=== PATIENT | male | born 1960 | race Caucasian/White ===

== ENCOUNTER 2018-02-16 13:45 | Inpatient (IN) | payer OTHER, MEDICAID ==
[~2018-02-16] VITALS: Ht 154.9 cm; Wt 60.8 kg
[2018-02-16 13:46] VITALS: BP 159/98
--- NOTE | 2018-02-16 13:51 | NUR ---
DR GRANGER AT BEDSIDE TO EVAL
--- NOTE | 2018-02-16 13:55 | NUR ---
PT BIBA FOR C/O ASPIRATION/CHOKED WHILE EATING AN APPLE ABOUT 1.5 HRS AGO. PT COUGHED UP SEVERAL PIECES OF APPLE MATERIALS SCIENTIST PER EMS. SINCE THEN HAS BEEN COUGHING UP LARGE AMOUNT OF WHITE SPUTUM. O2 SATS WNL ON RA. PT IS DEVELOPMENTALLY DELAYED, CARETAKERS AT BEDSIDE STATE HE IS AT HIS BASELINE FOR BEHAVIOR AND MENTATION. PT PLACED ON ALL MONITORS, VSS.
--- NOTE | 2018-02-16 13:56 | NUR ---
PT SUCTIONED WITH YONKER FOR CONTINUOUSLY COUGHING UP LARGE AMOUNT OF WHITE SPUTUM
--- NOTE | 2018-02-16 14:30 | NUR ---
DR GRANGER AT BEDSIDE TO [facility]. PT CONDITION UNCHANGED FROM PREVIOUS. CONTINUES TO HAVE PRODUCTIVE COUGH WITH WHITE SPUTUM
--- NOTE | 2018-02-16 15:04 | NUR ---
PT HAVING DECREASED PRODUCTIVE COUGH FREQUENCY. RESTING IN BED WITH EVEN UNLABORED RESPIRATIONS. PENDING REEVAL.
--- NOTE | 2018-02-16 15:34 | NUR ---
DR GRANGER AT BEDSIDE SPEAKING WITH BAR TURNER
[2018-02-16] MEDS ORDERED: BENZOCAINE 20% 57 GM CAN MC ONE (15:35)
[2018-02-16] MEDS ORDERED: KETAMINE 500 MG/5 ML VIAL IVP ONE (15:35)
--- NOTE | 2018-02-16 16:20 | NUR ---
CONSENT SIGNED FOR CONCIOUS SEDATION TO LOOK FOR FORIEGN BODY IN AIRWAY.
--- NOTE | 2018-02-16 16:28 | NUR ---
DR GRANGER PERFORMED CONCIOUS SEDATION PROCEDURE TO LOOK FOR FOREIGN BODY IN AIRWAY, PT TOLERATED WELL. RT, EMT, AND MYSELF ALL AT BEDSIDE FOR PROCEDURE. PLEASE SEE CONCIOUS SEDATION PAPER WORK FOR MORE INFO.
[2018-02-16] MEDS ORDERED: LAM200 PO (16:41)
[2018-02-16] MEDS ORDERED: METF850T PO (16:41)
[2018-02-16] MEDS ORDERED: CLON0.5T PO (16:41)
[2018-02-16] MEDS ORDERED: RANI150T15 PO (16:41)
[2018-02-16] MEDS ORDERED: BENA20TA PO (16:41)
[2018-02-16] MEDS ORDERED: CLON1TAB PO (16:41)
[2018-02-16] MEDS ORDERED: FERR-252 PO (16:41)
[2018-02-16] MEDS ORDERED: INSU100I3 SQ (16:41)
[2018-02-16] MEDS ORDERED: VITB6I PO (16:41)
[2018-02-16] MEDS ORDERED: [UNRECOGNIZED DRUG - CODE] MC (16:41)
[2018-02-16] MEDS ORDERED: VITD1000 PO (16:41)
[2018-02-16] MEDS ORDERED: VITA-415 PO (16:41)
[2018-02-16] MEDS ORDERED: ACT30 PO (16:41)
[2018-02-16] MEDS ORDERED: VITB1I PO (16:41)
[2018-02-16] MEDS ORDERED: CYAN250013 PO (16:41)
[2018-02-16] MEDS ORDERED: KEP500 PO (16:41)
[2018-02-16] MEDS ORDERED: ATOR10TA51 PO (16:41)
[2018-02-16] MEDS ORDERED: NACL 0.9% 1,000 ML IV SCH (17:08)
[2018-02-16] MEDS ORDERED: MORPHINE SULFATE 2 MG/ML SYR IVP PRN (17:10)
--- NOTE | 2018-02-16 17:16 | NUR ---
PT IS RESTING IN BED, RELAXED AND CALM, EVEN AND UNLABORED RESPIRATIONS. AROUSABLE TO VOICE. REMAINS ON ALL MONITORS, VS WNL. POA/HOMOGENIZER OPERATOR AT BEDSIDE UPDATED ON POC. PENDING ADMIT ORDERS.
--- NOTE | 2018-02-16 17:58 | NUR ---
Patient will be admitted to care of [facility]. Admited to TELE. Will go to [id number]. Belongings list completed. Report to UMESH ECHEVERRIA.
--- NOTE | 2018-02-16 18:00 | NUR ---
PT ADMITTED TO TELE. BEDSIDE REPORT GIVEN BY ER NURSE PAUL. PT AMBULATED TO BED FROM [facility] ASSISTED BY SISTER. WALKED WITH STEADY GAIT. PT IS APHASIC. ABLE TO FOLLOW COMMANDS. MRSA SWAB DONE. TELE MONITOR APPLIED. PT NPO. VS: TEMP 97.9. HR 100, BP 141/87, RR 22, O2 SAT 93% ON RA. PT WITH COUGH. IV TO R WRIST 22G INTACT. SISTER AT BEDSIDE. YELLOW SOCKS ON. CALL LIGHT WITHIN REACH. WILL CONTINUE TO MONITOR.
[2018-02-16 18:05] LABS: BASOPHILS % (AUTO) 0.1 % (0.0-2.0); EOSINOPHILS % (AUTO) 0.2 % (0.0-4.0); HEMATOCRIT 41.4 % (36-52); HEMOGLOBIN 14.1 g/dL (12.0-18.0); LYMPHOCYTES # (AUTO) 0.5 K/uL (2.0-11.5); LYMPHOCYTES % (AUTO) 6.6 % (20.5-51.1); MEAN CORPUSCULAR HEMOGLOBIN 30 pg (27-31); MEAN CORPUSCULAR HGB CONC 34 g/dL (33-37); MEAN CORPUSCULAR VOLUME 87.3 fL (80-94); MONOCYTES # (AUTO) 0.3 K/uL (0.8-1.0); MONOCYTES % (AUTO) 3.9 % (1.7-9.3); NEUTROPHILS # (AUTO) 6.5 K/uL (1.8-7.7); NEUTROPHILS % (AUTO) 89.2 % (42.2-75.2); PLATELET COUNT (AUTO) 169 K/uL (140-450); RED BLOOD CELL COUNT(AUTO) 4.74 MIL/uL (4.20-6.10); RED CELL DISTRIBUTION WIDTH 13.3 % (11.6-13.7); WHITE BLOOD COUNT (AUTO) 7.3 K/uL (4.8-10.8)
[2018-02-16] MEDS ORDERED: ALBUTEROL SULFATE/IPRATROPIU 3 ML SOL IH PRN ×4 (18:20→21:00)
[2018-02-16 18:36] LABS: ANION GAP 14.2 (8-16); CARBON DIOXIDE 26.4 mmol/L (21-32); CREATININE 0.4 mg/dL (0.7-1.3); POTASSIUM 3.6 mmol/L (3.5-5.1); TOTAL BILIRUBIN 0.4 mg/dL (0.0-1.0)
[2018-02-16 18:37] LABS: PROTHROMBIN TIME 11.4 secs (10.8-13.4)
[2018-02-16 18:39] LABS: CHOL/HDL RATIO 1.5 (1-4.5); FREE T4 (FREE THYROXINE) 1.16 ng/dL (0.76-1.46); MAGNESIUM 1.2 mg/dL (1.8-2.4); PHOSPHORUS 3.5 mg/dL (2.5-4.9); THYROID STIMULATING HORMONE 0.28 uIU/mL (0.34-3.74)
[2018-02-16] MEDS ORDERED: methylPREDNISolone SS 125 MG/2 ML VIAL IVP SCH (18:45)
[2018-02-16] MEDS ORDERED: DEXT 5% / NACL 0.9% 500 ML IV SCH (18:50)
[2018-02-16] MEDS ORDERED: ALBUTEROL SULFATE/IPRATROPIU 3 ML SOL IH SCH (19:00)
--- NOTE | 2018-02-16 19:20 | NUR ---
ENDORSED PT TO REAL ESTATE INTERNSHIP NURSE ELFEGO AT BEDSIDE FOR CONTINUITY OF CARE. PT IN STABLE CONDITION.
--- NOTE | 2018-02-16 19:21 | NUR ---
REPORT RECEIVED FROM AM SHIFT AT BEDSIDE. PT IN STABLE CONDITION. AAOX1. BOARD UPDATED AND INTRODUCED SELF TO PT AND CALL CENTER ANALYST. IV SITE PATENT AND INTACT. SKIN WARM, DRY, AND INTACT WITH NO OPEN WOUNDS. BED LOCKED IN LOW POSITION. CALL JIMÉNEZ WITHIN REACH. WILL CONTINUE TO MONITOR.
[2018-02-16] MEDS ORDERED: DEXTROSE 50% 50 ML SYR IVP PRN (19:55)
--- NOTE | 2018-02-16 19:55 | NUR ---
US OF ART AND VENOUS BILATERAL LOWER EXTREMITIES DONE.
[2018-02-16 20:00] VITALS: BP 136/83
[2018-02-16] MEDS ORDERED: MAG SULF 2000 MG/WATER PREMIX 50 ML IV SCH (20:00)
[2018-02-16] MEDS: LEVOFLOXACIN 750 MG/D5W PREMIX 150 ML IV SCH (20:27)
--- NOTE | 2018-02-16 20:30 | NUR ---
OG BOATENG. PT TOLERATED WELL.
--- NOTE | 2018-02-16 21:15 | NUR ---
RARE/ENDANGERED SPECIES SPECIALIST AT BEDSIDE. BS 240. 4 UNITS OF INSULIN ACCORDING TO SLIDING SCALE. RARE/ENDANGERED SPECIES SPECIALIST DOES NOT WANT INSULIN COVERAGE AT THE MOMENT IN FEAR OF BOTTOMING OUT. ASK IF I COULD CHECK IN A FEW HOURS AND IF INSULIN COVERAGE IS NEEDED THEN SHE WILL AGREE FOR INSULIN AT THAT TIME.
[2018-02-16] MEDS: BLOOD GLUCOSE MONITORING 1 DEV DEV FS SCH (21:17)
[2018-02-16] MEDS: CLINDAMYCIN 600 MG in DEXTROSE 5% 50 ML IV SCH (21:30)
--- NOTE | 2018-02-16 21:30 | NUR ---
CLINDAMYCIN TASNEEM. PT TOLERATED WELL.
--- NOTE | 2018-02-16 22:10 | NUR ---
MAG RIDER HUNG. MAG RIDER 2GM/50ML NOT AVAILABLE. RECEIVED 1G/100ML BAG X2 FROM DEREK ECHEVERRIA. RAN EACH BAG AT 50ML/HR DUE TO A LOWER CONCENTRATION. ORIGINAL RATE 25ML/HR. PT TOLERATED WELL.
--- NOTE | 2018-02-16 23:22 | NUR ---
PT OFF UNIT FOR CT NECK WITHOUT CONTRAST.
--- NOTE | 2018-02-16 23:40 | NUR ---
PT BACK FROM CT. NO S/S OF DISTRESS.
[2018-02-17] VITALS: BP 123/89
--- NOTE | 2018-02-17 01:45 | NUR ---
PT SLEEPING COMFORTABLY. CHEST EXPANSION NOTED.
--- NOTE | 2018-02-17 03:30 | NUR ---
PT AWAKE AND ALERT SITTING UP IN BED PLAYING WITH HIS STRING.
[2018-02-17 04:00] VITALS: BP 120/74
--- NOTE | 2018-02-17 05:00 | NUR ---
ATTEMPTED TO GET URINE SAMPLE. PUT HAT ON TOILET TO CATCH URINE. PT MISSED THE HAT COMPLETE.
[2018-02-17] MEDS: CLINDAMYCIN 600 MG in DEXTROSE 5% 50 ML IV SCH (05:21)
[2018-02-17] MEDS: BLOOD GLUCOSE MONITORING 1 DEV DEV FS SCH ×4 (05:26→20:23)
[2018-02-17] MEDS ORDERED: LORazepam 2 MG/ML VIAL IM/IVP PRN (06:05)
--- NOTE | 2018-02-17 07:10 | NUR ---
REPORT GIVEN TO AM NURSE. PT IN STABLE CONDITION.
--- NOTE | 2018-02-17 07:15 | NUR ---
RECEIVED PT FROM BRAND MGR NURSEELFEGO, PT IS AWAKE AND LYING ON THE BED WITH CAREGIVER ON THE BEDSIDE, SIDE RAILS ARE UP AND BED IN LOW POSITION, CALL LIGHT WITHIN REACH. PT HAS AN IV LINE ON THE RT WRIST G. 22, WITH D5 NS RUNNING AT 75ML/HR. RESPIRATIONS EVEN AND NO SIGN OF DISTRESS NOTED. WILL CONTINUE TO MONITOR.
[2018-02-17 07:32] LABS: BASOPHILS % (AUTO) 0.2 % (0.0-2.0); EOSINOPHILS % (AUTO) 0.1 % (0.0-4.0); HEMATOCRIT 46.9 % (36-52); HEMOGLOBIN 16.3 g/dL (12.0-18.0); LYMPHOCYTES # (AUTO) 0.6 K/uL (2.0-11.5); LYMPHOCYTES % (AUTO) 7.1 % (20.5-51.1); MEAN CORPUSCULAR HEMOGLOBIN 31 pg (27-31); MEAN CORPUSCULAR HGB CONC 35 g/dL (33-37); MEAN CORPUSCULAR VOLUME 87.6 fL (80-94); MONOCYTES # (AUTO) 0.3 K/uL (0.8-1.0); NEUTROPHILS # (AUTO) 7.2 K/uL (1.8-7.7); NEUTROPHILS % (AUTO) 88.6 % (42.2-75.2); PLATELET COUNT (AUTO) 186 K/uL (140-450); RED BLOOD CELL COUNT(AUTO) 5.36 MIL/uL (4.20-6.10); RED CELL DISTRIBUTION WIDTH 13.8 % (11.6-13.7); WHITE BLOOD COUNT (AUTO) 8.1 K/uL (4.8-10.8)
--- NOTE | 2018-02-17 07:35 | NUR ---
PT IS AWAKE AND SEATED ON THE BED, PT PULLED OUT HIS IV LINE ACCORDING TO THE CAREGIVER. VITAL SIGNS TAKEN AND IS STABLE. RT CAME AND CHECKED ON THE O2 SATURATION AND RESPIRATION OF THE PT. NO SIGN OF DISTRESS NOTED AND WILL CONTINUE TO MONITOR.
[2018-02-17 08:00] VITALS: BP 136/77
[2018-02-17 08:33] LABS: T4 (THYROXINE) 7.9 ug/dL (4.5-12.0)
--- NOTE | 2018-02-17 08:51 | NUR ---
PATIENT HAS BEEN SCREENED AND CATEGORIZED HIGH NUTRITION RISK. PATIENT WILL BE SEEN WITHIN 1-2 DAYS OF ADMISSION. 02/17/18 02/18/[address]
[2018-02-17] MEDS ORDERED: INSULIN LANTUS 100 UNITS/ML 10 ML VIAL SUBQ SCH (09:00)
--- NOTE | 2018-02-17 09:01 | NUR ---
PT IS AWAKE AND SEATED ON THE BED, NIECE ON THE BEDSIDE, BLOOD GLUCOSE [id number] AND RESULT IS 237, LANTUS GIVEN AT THE LEFT UPPER ARM AT 12UNITS, PT TOLERATED IT, NIECE REFUSED TO BE GIVEN HUMALOG SLIDING SCALE EQUIVALENT OF 4 UNITS TO THE PT. NO SIGN OF DISTRESS NOTED AND WILL MYRA.
[2018-02-17 09:11] LABS: ANION GAP 14.5 (8-16); CARBON DIOXIDE 25.8 mmol/L (21-32); CREATININE 0.6 mg/dL (0.7-1.3); POTASSIUM 4.3 mmol/L (3.5-5.1)
--- NOTE | 2018-02-17 09:40 | NUR ---
A NEW IV LINE WAS STARTED ON THE PT ON THE LEFT HAND G.22. AND HOOKED TO IV FLUID OF D5 NS AT 75ML/HR, INTACT AND INFUSING WELL. NO SIGN OF DISTRESS NOTED ON THE PT. WILL MONITOR.
--- NOTE | 2018-02-17 10:35 | NUR ---
PT HAD AN EPISODE OF SEIZURE THAT PROMPTED TO CALL RAPID RESPONSE, PT'S VITAL SIGNS WAS TAKEN AND IS STABLE. PT WAS ON O2 AT 3L. BLOOD GLUCOSE CHECK DONE AND RESULT IS 250. PT IS BEING OBSERVE AT THIS TIME.
[2018-02-17] MEDS ORDERED: clonazePAM 0.5 MG TAB PO PRN (10:40)
[2018-02-17] MEDS ORDERED: LORazepam 2 MG/ML VIAL IVP PRN (10:50)
[2018-02-17] MEDS ORDERED: DEXT 5% /NACL 0.9% 1,000 ML IV SCH (10:57)
[2018-02-17] MEDS ORDERED: INSU100I3 SQ (11:30)
--- NOTE | 2018-02-17 11:50 | NUR ---
Charge Preparation Technician Notes Late Entry for 02/17/18 at about 11:50am. I attempted to meet with Patient during the screen to discuss, confirm and gather Patients additional information. Patient refused to meet or answer any questions to these bond underwriter. Patient cover his head with his blanket ignore and did not responded to any questions.
[2018-02-17 12:00] VITALS: BP 110/55
--- NOTE | 2018-02-17 12:00 | NUR ---
BLOOD GLUCOSE CHECK DONE ON THE PT AND RESULT IS 282, FAMILY REFUSED FOR THE PT TO BE GIVEN A HUMALOG INSULIN. WILL CONTINUE TO MONITOR PT.
--- NOTE | 2018-02-17 12:25 | NUR ---
PLANTING SUPERVISOR NOTE 1215 PLANTING SUPERVISOR attempted to see pt for swallow evaluation after clearance by JACKI Frias, caregiver present at bedside. According to caregiver, pt had a seizure <2hrs ago, and is very lethargic. Pt unable to rouse for swallow evaluation, PLANTING SUPERVISOR will return in 1 hr to re-attempt. Caregiver and JACKI Frias voiced agreement.
[2018-02-17] MEDS ORDERED: levETIRAcetam 500 MG in NACL 0.9% 100 ML IV SCH (12:30)
--- NOTE | 2018-02-17 12:30 | NUR ---
Purchasing Coordinator Notes Late Entry for 02/17/18 at about 12:30 I received a call form [facility] . I spoke to Tonja who reported that Patient is getting home health services with their agency. According to Tonja they will be sending patient's information to child welfare caseworker and psychotherapist social worker and will like to be contacted back to resume their services when patient is ready and clear for discharge. A fax form [facility] with Patient information was received followed by the call from Tonja at about 12:54PM
[2018-02-17] MEDS: CLINDAMYCIN PHOS 600MG/D5W PM 50 ML IV SCH ×2 (13:21→20:31)
--- NOTE | 2018-02-17 13:25 | NUR ---
PT IS ASLEEP WITH FAMILY ON THE BEDISDE, O2 3L IN PLACE AND VITAL SIGNS MONITORING IN PLACE ALSO. VITAL SIGNS STABLE. MEDICATION GIVEN VIA IVPB, AND PT TOLERATED IT. NO SIGN OF DISTRESS NOTED ON THE PT NOW. WILL CONTINUE TO MONITOR.
--- NOTE | 2018-02-17 13:55 | NUR ---
SPOKE TO NAMITA WHO DID THE SWALLOW EVALUATION FOR THE PT, ACCORDING TO NAMITA'S RECOMMENDATION PT CAN HAVE A MECHANICAL SOFT DIET WITH THIN LIQUID BUT WITH SUPERVISION AND ASPIRATION PRECAUTION SHOULD BE ENFORCED. ACKNOWLEDGED AND WILL WAIT FOR MD TO PUT AN ORDER FOR THE PT.
[2018-02-17] MEDS: metFORMIN 850 MG TAB PO SCH ×2 (13:59→16:39)
--- NOTE | 2018-02-17 14:04 | NUR ---
LEARNING CONSULTANT NOTE [id number] Bedside swallow evaluation completed following clearance by JACKI Frias, please refer to LEARNING CONSULTANT evaluation for full report. Recommend: -Mech soft texture + thin liquids for all PO intake -STRICT 1:1 supervision to decrease risk of choking 2/2 pt has rapid rate of intake -UPRIGHT at 90 during and 20 min after intake -SMALL bites/sips, SLOW rate, ALTERNATE bites/sips -Feeding assistance as needed if rapid rate of intake persists -LEARNING CONSULTANT to follow 1x/wk x1wk for diet safety and tolerance PVE w/RN, caregivers, and Dr. Terry re: results and recommendations. LEARNING CONSULTANT continued to stress the importance of choking safety after caregivers stated pt like to feed self and doesn't like being watched, given the fact pt choked on an apple. Caregivers voiced understanding. G8996: CJ G8998: CI Swallow NOMS 3
--- NOTE | 2018-02-17 14:35 | NUR ---
DR. VELASCO CAME TO THE PT'S ROOM AND SPOKE TO FAMILY, RN, MERLYN IS COVERING FOR RAMA ECHEVERRIA WHILE SHE TAKES HER LUNCH BREAK.
--- NOTE | 2018-02-17 14:45 | NUR ---
DR. VELASCO CAME IN AND SPOKE TO FAMILY. SUGGESTED A SLIDING SCALE FOR GLUCOSE LEVEL. FAMILY IS UNCOMFORTABLE WITH GIVING A FULL DOSE BUT 1/2 DOSE. AFRAID THAT BS WILL DROP TOO QUICKLY. WILL GO AHEAD AND GIVE 1/2 SUGGESTED AND WILL CHECK IN AN HOUR TO SEE IF IT DROPPED SIGNIFICANTLY. FAMILY VERBALIZED UNDERSTANDING AND AGREED THAT THEY WILL AGREE TO 1/[address]'S ORDERS FOR LAMICTAL ONE TIME NOW AND SCHEDULED BID.
--- NOTE | 2018-02-17 14:52 | NUR ---
02/17/18 RD INITIAL ASSESSMENT COMPLETED PLEASE REFER TO NUTRITION ASSESSMENT UNDER CARE ACTIVITY FOR ESTIMATED NUTRITIONAL NEEDS. 1. WHEN/IF PT MEDICALLY STABLE TO BEGIN NUTRITION, CONSIDER ADVANCE DIET TOLERATED TO MECHANICAL SOFT CCHO 60GM, CARDIAC TOLERATED 2. PROVIDED NUTRITION EDUCATION ON DIABETES MANAGMENT 3. RD TO FOLLOW-UP 3-5 DAYS, MODERATE RISK AZAEL KELLER RD
[2018-02-17] MEDS: INSULIN LISPRO SLIDING SCALE 100 UNITS/ML VIAL SUBQ PRN ×3 (15:09→21:11)
--- NOTE | 2018-02-17 15:11 | NUR ---
ADMINISTERED 3 UNITS OF INSULIN AND LAMICTAL. PT TOLERATED WELL. FAMILY AT BEDSIDE. WILL CONTINUE TO MONITOR PT.
--- NOTE | 2018-02-17 15:13 | NUR ---
PER JACKI ZULETA'S ENDORSEMENT, PT'S BLOOD GLUCOSE CHECKING WILL BE EVERY 4H STARTING AT 1600 TODAY.ACKNOWLEDGED.
[2018-02-17 16:00] VITALS: BP 116/67
--- NOTE | 2018-02-17 16:30 | NUR ---
PT IS AWAKE AND SEATED ON THE BED, BLOOD GLUCOSE CHECK DONE AND RESULT IS 218. INSULIN COVERAGE IS NEEDED.
--- NOTE | 2018-02-17 16:45 | NUR ---
PT IS AWAKE AND SEATED ON A SEMI_FOWLER'S POSITION ON THE BED, DR. CHRISTIAN CAME AND SPOKE TO THE FAMILY. MEDICATIONS GIVEN AND PT TOLERATED IT WELL. NO SIGN OF DISTRESS NOTED AND WILL CONTINUE TO MONITOR.
--- NOTE | 2018-02-17 18:15 | NUR ---
PT IS BEING OBSERVED WHILE EATING, PT TOLERATED HIS FULL LIQUID DIET WELL AND WAS ADVISED TO SWALLOW AND DRINK SLOWLY TO PREVENT CHOKING AND ASPIRATION. PT OBEYS COMMAND. NO SIGN OF DISTRESS NOTED. WILL ENDORSED TO TIPPLE TENDER NURSE FOR FURTHER EVALUATION.
--- NOTE | 2018-02-17 19:15 | NUR ---
ENDORSED PT TONIGHT SHIFT NURSE, MO FOR CONTINUITY OF CARE, PT IS STABLE AT THIS TIME WITH CAREGIVER ON THE BEDSIDE.
--- NOTE | 2018-02-17 19:20 | NUR ---
RECEIVED PT IN STABLE CONDITION FROM AM NURSE. AWAKE, ALERT BUT MENTALLY DELAY. ON TELE MONITOR. BED REST WITH FAMILY AT BEDSIDE. ON ROOM AIR O2 SAT97%. NO SOB NOR ANY DISTRESS NOTED. WITH IVF INFUSING WELL ON THE LT FA#22. CLEAR AND PATENT. PT PLAYING WITH SOME OWN TOYS. ON THE TABLE. SIDE RAILS ARE PADDED FOR SEIZURE PRECAUTIONS. BED ON LOW POSITION. FREQUENT ROUNDS NEEDED. WILL CONTINUE TO MONITOR FOR ANY SEIZURE ACTIVITY.
[2018-02-17 20:00] VITALS: BP 115/68
[2018-02-17] MEDS: NACL 0.9% 1,000 ML IV SCH (20:24)
[2018-02-17] MEDS: LEVOFLOXACIN 750 MG/D5W PREMIX 150 ML IV SCH (20:25)
[2018-02-17] MEDS: levETIRAcetam 500 MG TAB PO SCH (20:31)
[2018-02-17] MEDS: clonazePAM 0.5 MG TAB PO SCH (20:32)
[2018-02-17] MEDS: FAMOTIDINE 20 MG TAB PO SCH (20:33)
[2018-02-17] MEDS ORDERED: BENAZEPRIL 10 MG TAB PO SCH (21:00)
[2018-02-17] MEDS ORDERED: NON-FORMULARY ITEM (Ranitidine HCl (Zantac) 150 MG) PO SCH (21:00)
--- NOTE | 2018-02-17 21:11 | NUR ---
BLOOD SUGAR WAS CHECKED RESULT 199. INSULIN COVERAGE GIVEN ORDERED. PROVIDED WITH SOME SNACK. TOLERATED WELL . WILL CONTINUE TO MONITOR.
--- NOTE | 2018-02-17 23:00 | NUR ---
MADE ROUNDS. PT IS ASLEEP. CAREGIVER AT BEDSIDE. WILL CONTINUE TO MONITOR.
[2018-02-18] MEDS: BLOOD GLUCOSE MONITORING 1 DEV DEV FS SCH ×3 (00:19→08:18)
--- NOTE | 2018-02-18 00:19 | NUR ---
BLOOD SUGAR WAS CHECKED RESULT 140. NO INSULIN NEEDED.
--- NOTE | 2018-02-18 01:00 | NUR ---
MADE ROUNDS. PT ASLEEP. NO SEIZURE ACTIVITY NOTED. WILL CONITNUE TO MONITOR.
--- NOTE | 2018-02-18 03:00 | NUR ---
SLEEPING. NO S/S OF ANY DISCOMFORT NOT PAIN NOTED.
[2018-02-18] MEDS: CLINDAMYCIN PHOS 600MG/D5W PM 50 ML IV SCH (04:25)
[2018-02-18] MEDS: INSULIN LISPRO SLIDING SCALE 100 UNITS/ML VIAL SUBQ PRN (04:32)
--- NOTE | 2018-02-18 04:32 | NUR ---
BLOOD SUGAR THIS AM 219. INSULIN COVERAGE GIVEN. WILL CONTINUE TO MONITOR.
[2018-02-18 07:21] LABS: BASOPHILS % (AUTO) 0.1 % (0.0-2.0); EOSINOPHILS % (AUTO) 0.8 % (0.0-4.0); HEMATOCRIT 39.5 % (36-52); HEMOGLOBIN 13.7 g/dL (12.0-18.0); LYMPHOCYTES # (AUTO) 1.1 K/uL (2.0-11.5); LYMPHOCYTES % (AUTO) 18.7 % (20.5-51.1); MEAN CORPUSCULAR HEMOGLOBIN 30 pg (27-31); MEAN CORPUSCULAR HGB CONC 35 g/dL (33-37); MEAN CORPUSCULAR VOLUME 86.8 fL (80-94); MONOCYTES # (AUTO) 0.4 K/uL (0.8-1.0); MONOCYTES % (AUTO) 6.5 % (1.7-9.3); NEUTROPHILS # (AUTO) 4.2 K/uL (1.8-7.7); NEUTROPHILS % (AUTO) 73.9 % (42.2-75.2); PLATELET COUNT (AUTO) 177 K/uL (140-450); RED BLOOD CELL COUNT(AUTO) 4.55 MIL/uL (4.20-6.10); RED CELL DISTRIBUTION WIDTH 13.4 % (11.6-13.7); WHITE BLOOD COUNT (AUTO) 5.7 K/uL (4.8-10.8)
--- NOTE | 2018-02-18 07:24 | NUR ---
ENDORSED PT IN STABLE CONDITION TO AM NURSE FOR CONTINUITY OF CARE.
--- NOTE | 2018-02-18 07:30 | NUR ---
RECEIVED PT FROM WORT EXTRACTOR NURSEMO, PT IS AWAKE LYING ON A SEMI-RODRIGUEZ'S POSITION ON THE BED WITH CAREGIVER ON THE BEDSIDE. PT HAS AN IV LINE ON THE LEFT FA G. 22 INTACT AND WITH NS RUNNING AT 75ML/HR, INFUSING WELL. SIDE RAILS ARE UP AND PADDED AND SEIZURE PRECAUTION ENFORCED. CALL LIGHT WITHIN REACH AND PLAN OF CARE WAS DISCUSSED WITH THE PT WITH THE CAREGIVER ON THE BEDSIDE. NO SIGN OF DISTRESS NOTED AND WILL CONTINUE TO MONITOR.
[2018-02-18 07:44] LABS: ANION GAP 11.9 (8-16); CARBON DIOXIDE 25.9 mmol/L (21-32); CREATININE 0.7 mg/dL (0.7-1.3); POTASSIUM 3.8 mmol/L (3.5-5.1)
--- NOTE | 2018-02-18 07:45 | NUR ---
PT IS AWAKE AND BREAKFAST WAS SERVED, VITAL SIGNS TAKEN AND IS STABLE. SUPERVISION WITH THE FEEDING WAS DONE WITH THE CAREGIVER ON THE BEDSIDE. ASPIRATION PRECAUTION ENFORCED AND NO SIGN OF DISTRESS NOTED. WILL MMONITOR.
[2018-02-18 07:51] LABS: MAGNESIUM 1.6 mg/dL (1.8-2.4); PHOSPHORUS 3.3 mg/dL (2.5-4.9)
[2018-02-18 08:00] VITALS: BP 113/69
[2018-02-18] MEDS: metFORMIN 850 MG TAB PO SCH (08:19)
[2018-02-18] MEDS: FAMOTIDINE 20 MG TAB PO SCH (08:20)
--- NOTE | 2018-02-18 08:20 | NUR ---
DR. GUERRA AND THE RESIDENTS CAME TO THE PT'S ROOM AND SPOKE TO THE PT AND THE CAREGIVER ON THE BEDSIDE. DR. GUERRA TOLD THE CAREGIVER AND THE PT THAT THE PT WILL BE DISCHARGE TODAY.
[2018-02-18] MEDS: levETIRAcetam 500 MG TAB PO SCH (08:21)
[2018-02-18] MEDS: clonazePAM 0.5 MG TAB PO SCH (08:23)
--- NOTE | 2018-02-18 08:31 | NUR ---
PT IS AWAKE AND HAVING HIS BREAKFAST, MEDICATIONS GIVEN AND PT TOLERATED IT WELL. NO SIGN OF ASPIRATION OR ANY DISTRESS NOTED ON THE PT. WILL MONITOR.
--- NOTE | 2018-02-18 08:49 | NUR ---
SPOKE TO DR. ALVAREZ IF THE PT'S EGD WILL BE CANCEL AND ASKED IF DR. CHRISTIAN IS INFORMED ABOUT THE CANCELLATION OF THE EGD OF THE PT TODAY AND DR. ALVAREZ SAID THAT HE WILL INFORM DR. CHRISTIAN OF THE CANCELLATION OF THE PROCEDURE TODAY.
[2018-02-18] MEDS ORDERED: ATORVASTATIN 20 MG TAB PO SCH (09:00)
[2018-02-18] MEDS ORDERED: COMMUNICATION ORDER MC SCH (09:00)
[2018-02-18] MEDS ORDERED: SENNA 8.6 MG TAB PO SCH (09:00)
[2018-02-18] MEDS ORDERED: [UNRECOGNIZED DRUG - OTHER] SUBQ SCH (09:00)
[2018-02-18] MEDS ORDERED: LACTULOSE 20 GM/30 ML UDC PO SCH (09:00)
--- NOTE | 2018-02-18 09:02 | NUR ---
INFORMED DR. ALVAREZ OF THE PT'S MAGNESIUM LEVEL OF 1.[address] ALVAREZ ACKNOWLEDGED AND SAID THAT HE WILL PUT AN ORDER.
[2018-02-18] MEDS: NACL 0.9% 1,000 ML IV SCH (09:20)
--- NOTE | 2018-02-18 09:46 | NUR ---
ACKNOWLEDGED A DISCHARGE ORDER PLACED BY DR. ALVAREZ FOR THE PT. WILL FACILITATE DISCHARGE PROCESS.
[2018-02-18] MEDS ORDERED: MAGNESIUM OXIDE 400 MG TAB PO SCH (10:00)
--- NOTE | 2018-02-18 10:18 | NUR ---
DR. VELASCO CAME TO THE PT'S ROOM AND TALKED TO THE CAREGIVERS PRESENT ON THE BEDSIDE REGARDING THE PT'S DISCHARGE MEDICATION INSTRUCTIONS AND ANSWERED ALL THE CAREGIVERS QUESTIONS RELATED TO THE PT'S MEDICATIONS. CAREGIVERS VERBALIZED UNDERSTANDING.
--- NOTE | 2018-02-18 11:20 | NUR ---
DISCHARGED PT VIA WHEELCHAIR WITH THE CAREGIVERS, DISCHARGED INSTRUCTIONS GIVEN AND FORMS FOR REQUEST OF MEDICAL RECORDS INFORMATION GIVEN TO MAXIM CAREGIVER. IV LINE AND ARM BANDS REMOVED. PT IS STABLE AT THIS TIME.
--- NOTE | 2018-02-18 11:52 | NUR ---
CAREGIVER CAME BACK TO ENVIRONMENTAL ASSISTANT THE TRESIBA AND HANDED IT TO HER.
--- NOTE | 2018-02-18 14:29 | NUR ---
PRE PLANNING ADVISOR NOTE 1430 Pt d/c to B/C on mechanical soft texture and thin liquids. Recommend continue strict aspiration precautions to reduce risk of choking. Addendum: 02/18/18 at [address] G8996: TERRELL G8997: CI G8998: CI Swallow NOMS 4
== END 2018-02-18 11:20 | DRG 394 ==
LOC: MED 13:45 → MTU 17:15
PROVIDERS: ADMIT General Practice; ATTEND General Practice
PROC: 0WJ34ZZ Inspection of Oral Cavity and Throat, Percutaneous Endoscopic Approach (ICD-10-PCS; principal; 2018-02-16)
DX: T18.128A Food in esophagus causing other injury, initial encounter (principal); J05.10 Acute epiglottitis without obstruction; E87.1 Hypo-osmolality and hyponatremia; J98.11 Atelectasis; E83.42 Hypomagnesemia; G40.909 Epilepsy, unspecified, not intractable, without status epilepticus; I10 Essential (primary) hypertension; E78.5 Hyperlipidemia, unspecified; M47.9 Spondylosis, unspecified; F79 Unspecified intellectual disabilities; K21.9 Gastro-esophageal reflux disease without esophagitis; E87.8 Other disorders of electrolyte and fluid balance, not elsewhere classified; E11.65 Type 2 diabetes mellitus with hyperglycemia; E11.40 Type 2 diabetes mellitus with diabetic neuropathy, unspecified; X58.XXXA Exposure to other specified factors, initial encounter; K22.70 Barrett's esophagus without dysplasia; Z86.718 Personal history of other venous thrombosis and embolism; Z88.0 Allergy status to penicillin; Z88.2 Allergy status to sulfonamides; Z79.899 Other long term (current) drug therapy; Z79.84 Long term (current) use of oral hypoglycemic drugs; Y93.89 Activity, other specified; Y92.89 Other specified places as the place of occurrence of the external cause; Y99.8 Other external cause status
CPT/HCPCS: 36415; 70360; 70490; 71045; 71250; 80048; 80053; 82150; 82948; 83036; 83690; 83735; 83880; 84100; 84436; 84439; 84443; 84479; 84484; 85025; 85610; 85730; 87081; 92610; 93005; 93925; 93970; 94640; 97799; 99285; J1815; J1953; J1956; J2060; J2930; J3490; J7030; J7042; J7060; J7620; Q0092

== ENCOUNTER 2019-03-24 10:46 | Emergency (ER) | payer MEDICAID, OTHER ==
[~2019-03-24] VITALS: Ht 167.6 cm; Wt 81.6 kg
[2019-03-24 10:46] VITALS: BP 133/80
[~2019-03-24 10:46] MED LIST: ATOR10TA51 PO; BENA20TA PO; CLON0.5T PO; CLON1TAB PO; CYAN250013 PO; FERR-252 PO; INSU100I3 SQ; KEP500 PO; LAM200 PO; METF850T PO; RANI-745 PO; VITA-415 PO; VITB1I PO; VITB6I PO; VITD1000 PO; [UNRECOGNIZED DRUG - CODE] MC
--- NOTE | 2019-03-24 10:49 | NUR ---
PT BIB [facility] TO ER BED 9
--- NOTE | 2019-03-24 10:50 | NUR ---
Pt biba for further evaluation of possible pulmonary aspiration after choking with slices of apple. Per EMS pt was actively vomiting when they arrived at scene; Pt had another vomiting episode in route. VSS. RR even and unlabored; O2 sat 95% on RA. Pt is non-verbal; baseline per caregiver. med hx: DM II, seizure, aphasia allergies: Sulfa, Penicillins
--- NOTE | 2019-03-24 11:00 | NUR ---
Patient resting comfortably in bed. Vital Signs within normal limits. Respirations even and unlabored. Caregiver at bedside.
[2019-03-24] MEDS ORDERED: ACT30 PO (11:17)
[2019-03-24 12:16] VITALS: BP 112/69
--- NOTE | 2019-03-24 12:17 | NUR ---
Patient discharged with v/s stable. Written and verbal after care instructions given and explained. caregiver verbalized understanding. Ambulatory with steady gait. All questions addressed prior to discharge. Advised to follow up with PMD.
== END 2019-03-24 12:17 | disposition home or self-care (01) ==
LOC: MED 10:46
DX: T17.928A Food in respiratory tract, part unspecified causing other injury, initial encounter (principal); E11.9 Type 2 diabetes mellitus without complications; K21.9 Gastro-esophageal reflux disease without esophagitis; Z86.69 Personal history of other diseases of the nervous system and sense organs; Z79.899 Other long term (current) drug therapy; Z79.84 Long term (current) use of oral hypoglycemic drugs; Z88.0 Allergy status to penicillin; Z88.1 Allergy status to other antibiotic agents; X58.XXXA Exposure to other specified factors, initial encounter; Y93.89 Activity, other specified; Y92.210 Daycare center as the place of occurrence of the external cause; Y99.8 Other external cause status
CPT/HCPCS: 99283